=== PATIENT | male | born 1975 | race Two or more races ===

== ENCOUNTER → 2017-06-01 | Emergency (ER) | payer OTHER ==
[~2017-06-01] VITALS: Ht 175.3 cm; Wt 80.7 kg
[~2017-06-01] MED LIST: KETO10TA2 PO
== END | disposition home or self-care (01) ==
LOC: ER 21:21
DX: S61.451A Open bite of right hand, initial encounter (principal); W54.0XXA Bitten by dog, initial encounter; Y93.89 Activity, other specified; Y92.89 Other specified places as the place of occurrence of the external cause; Y99.8 Other external cause status

== ENCOUNTER → 2017-06-02 | Emergency (ER) | payer OTHER ==
[~2017-06-02] VITALS: Ht 175.3 cm; Wt 85.3 kg
== END | disposition left against medical advice (07) ==
LOC: ER 00:27
DX: Z53.20 Procedure and treatment not carried out because of patient's decision for unspecified reasons (principal)

== ENCOUNTER 2017-09-14 04:43 | Emergency (ER) | payer OTHER ==
[~2017-09-14] VITALS: Ht 170.2 cm; Wt 79.4 kg
== END 2017-09-14 10:40 | disposition home or self-care (01) ==
LOC: ER 04:43
DX: S60.413A Abrasion of left middle finger, initial encounter (principal); L08.9 Local infection of the skin and subcutaneous tissue, unspecified; W23.0XXA Caught, crushed, jammed, or pinched between moving objects, initial encounter; Y93.89 Activity, other specified; Y92.89 Other specified places as the place of occurrence of the external cause; Y99.8 Other external cause status

== ENCOUNTER → 2018-02-21 | Emergency (ER) | payer OTHER ==
[~2018-02-21] VITALS: Ht 175.3 cm; Wt 60.8 kg
[~2018-02-21] MED LIST changes: +IBUPROFEN800 MG PO
== END | disposition left against medical advice (07) ==
LOC: ER 23:55
DX: Z53.20 Procedure and treatment not carried out because of patient's decision for unspecified reasons (principal)

== ENCOUNTER 2018-02-25 07:04 | Emergency (ER) | payer OTHER ==
[~2018-02-25] VITALS: Ht 175.3 cm; Wt 83.5 kg
[~2018-02-25 07:04] MED LIST changes: -IBUPROFEN800 MG PO
[2018-02-25] MEDS ORDERED: IBUPROFEN800 MG PO (11:09)
== END 2018-02-25 12:28 | disposition home or self-care (01) ==
LOC: ER 07:04
DX: S60.022A Contusion of left index finger without damage to nail, initial encounter (principal); W23.0XXA Caught, crushed, jammed, or pinched between moving objects, initial encounter; Y93.89 Activity, other specified; Y92.69 Other specified industrial and construction area as the place of occurrence of the external cause; Y99.8 Other external cause status

== ENCOUNTER 2019-03-15 17:18 | Emergency (ER) | payer OTHER ==
[~2019-03-15] VITALS: Ht 175.3 cm; Wt 84.8 kg
[~2019-03-15 17:18] MED LIST changes: +IBUPROFEN800 MG PO
[2019-03-15] MEDS ORDERED: KETO10TA2 PO (20:09)
== END 2019-03-15 20:13 | disposition home or self-care (01) ==
LOC: ER 17:18
DX: S63.695A Other sprain of left ring finger, initial encounter (principal); S63.693A Other sprain of left middle finger, initial encounter; M12.542 Traumatic arthropathy, left hand; W01.198A Fall on same level from slipping, tripping and stumbling with subsequent striking against other object, initial encounter; Y93.89 Activity, other specified; Y92.89 Other specified places as the place of occurrence of the external cause; Y99.8 Other external cause status

== ENCOUNTER 2019-05-06 08:16 | Emergency (ER) | payer OTHER ==
[~2019-05-06] VITALS: Ht 175.3 cm; Wt 84.4 kg
== END 2019-05-06 09:02 | disposition home or self-care (01) ==
LOC: ER 08:16
DX: M70.22 Olecranon bursitis, left elbow (principal); Y93.89 Activity, other specified

== ENCOUNTER 2019-07-15 07:53 | Emergency (ER) | payer OTHER ==
[~2019-07-15] VITALS: Ht 175.3 cm; Wt 84.4 kg
[2019-07-31] MEDS ORDERED: ZESTRIL2.5 MG (12:51)
== END 2019-07-15 09:24 | disposition home or self-care (01) ==
LOC: ER 07:53
DX: J02.8 Acute pharyngitis due to other specified organisms (principal); B96.0 Mycoplasma pneumoniae [M. pneumoniae] as the cause of diseases classified elsewhere; R07.89 Other chest pain

== ENCOUNTER 2019-07-22 13:00 | Outpatient (CLI) | payer OTHER ==
[~2019-07-22] VITALS: Ht 175.3 cm; Wt 83.5 kg
[2019-07-31] MEDS ORDERED: ZESTRIL2.5 MG (12:51)
== END 2019-07-22 14:09 | disposition home or self-care (01) ==
LOC: OFIC 805 13:00
PROVIDERS: ATTEND Otolaryngology
DX: K11.5 Sialolithiasis (principal); H61.23 Impacted cerumen, bilateral

== ENCOUNTER 2019-07-29 21:55 | Emergency (ER) | payer OTHER ==
[~2019-07-29] VITALS: Ht 175.3 cm; Wt 83.5 kg
[2019-07-31] MEDS ORDERED: ZESTRIL2.5 MG (12:51)
== END 2019-07-29 23:24 | disposition home or self-care (01) ==
LOC: ER 21:55
DX: M54.5 Low back pain (principal); M54.6 Pain in thoracic spine

== ENCOUNTER → 2019-07-31 | Emergency (ER) | payer OTHER ==
[~2019-07-31] VITALS: Ht 175.3 cm; Wt 83.5 kg
[~2019-07-31] MED LIST changes: +ZESTRIL2.5 MG
== END | disposition home or self-care (01) ==
LOC: ER 12:21
DX: M54.89 Other dorsalgia (principal)

== ENCOUNTER 2019-08-11 22:58 | Emergency (ER) | payer OTHER ==
[~2019-08-11] VITALS: Ht 175.3 cm; Wt 76.2 kg
== END 2019-08-12 04:11 ==
LOC: ER 22:58
DX: Z48.89 Encounter for other specified surgical aftercare (principal)

== ENCOUNTER → 2019-08-27 | Emergency (ER) | payer OTHER ==
[~2019-08-27] MED LIST changes: +SKELAXIN800 MG PO
== END | disposition left against medical advice (07) ==
LOC: ER 12:14
DX: Z53.20 Procedure and treatment not carried out because of patient's decision for unspecified reasons (principal)

== ENCOUNTER 2019-08-31 16:38 | Emergency (ER) | payer OTHER ==
[~2019-08-31] VITALS: Ht 175.3 cm; Wt 77.6 kg
[~2019-08-31 16:38] MED LIST changes: -SKELAXIN800 MG PO
[2019-08-31] MEDS ORDERED: SKELAXIN800 MG PO (18:54)
[2019-08-31] MEDS ORDERED: KETO10TA2 PO (18:54)
== END 2019-08-31 18:58 | disposition home or self-care (01) ==
LOC: ER 16:38
DX: N39.0 Urinary tract infection, site not specified (principal); M62.830 Muscle spasm of back; R10.31 Right lower quadrant pain

== ENCOUNTER 2019-09-17 09:58 | Outpatient (CLI) | payer OTHER ==
[~2019-09-17 09:58] MED LIST changes: +SKELAXIN800 MG PO
== END 2019-09-17 10:14 | disposition home or self-care (01) ==
LOC: SONOGRAMA 09:58
PROVIDERS: ATTEND Surgery
DX: K80.80 Other cholelithiasis without obstruction (principal)

== ENCOUNTER 2019-09-25 10:19 | Emergency (ER) | payer OTHER ==
[~2019-09-25] VITALS: Ht 152.4 cm; Wt 79.8 kg
[2019-09-26] MEDS ORDERED: ZESTRIL5 MG (10:25)
[2019-09-26] MEDS ORDERED: ULTRAM50 MG PO (23:54)
[2019-09-26] MEDS ORDERED: KETO10TA2 PO (23:54)
[2019-09-26] MEDS ORDERED: PEPCID AC20 MG PO (23:54)
[2019-09-26] MEDS ORDERED: LEVSIN/SL0.125 MG SL (23:54)
[2019-10-18] MEDS ORDERED: ENALAPRIL (15:40)
== END 2019-09-25 10:41 | disposition left against medical advice (07) ==
LOC: ER 10:19
DX: R10.11 Right upper quadrant pain (principal)

== ENCOUNTER 2019-09-26 18:38 | Emergency (ER) | payer OTHER ==
[~2019-09-26] VITALS: Ht 175.3 cm; Wt 79.8 kg
[~2019-09-26 18:38] MED LIST changes: -ENALAPRIL; -LEVSIN/SL0.125 MG SL; -PEPCID AC20 MG PO; -ULTRAM50 MG PO
[2019-09-26] MEDS ORDERED: LEVSIN/SL0.125 MG SL (23:54)
[2019-09-26] MEDS ORDERED: PEPCID AC20 MG PO (23:54)
[2019-09-26] MEDS ORDERED: ULTRAM50 MG PO (23:54)
[2019-09-26] MEDS ORDERED: KETO10TA2 PO (23:54)
[2019-10-18] MEDS ORDERED: ENALAPRIL (15:40)
== END 2019-09-27 00:06 ==
LOC: ER 18:38
DX: R10.11 Right upper quadrant pain (principal); K29.60 Other gastritis without bleeding; K80.20 Calculus of gallbladder without cholecystitis without obstruction

== ENCOUNTER → 2019-09-26 | Emergency (ER) | payer OTHER ==
[~2019-09-26] VITALS: Ht 175.3 cm; Wt 79.8 kg
[~2019-09-26] MED LIST changes: +ENALAPRIL; +LEVSIN/SL0.125 MG SL; +PEPCID AC20 MG PO; +ULTRAM50 MG PO; +ZESTRIL5 MG
== END | disposition left against medical advice (07) ==
LOC: ER 10:15
DX: C61 Malignant neoplasm of prostate (principal); C79.51 Secondary malignant neoplasm of bone; G89.3 Neoplasm related pain (acute) (chronic); R10.2 Pelvic and perineal pain; M54.89 Other dorsalgia

== ENCOUNTER 2019-10-08 11:50 | Emergency (ER) | payer OTHER ==
[~2019-10-08] VITALS: Ht 297.2 cm; Wt 73.5 kg
[~2019-10-08 11:50] MED LIST changes: +LEVSIN/SL0.125 MG SL; +PEPCID AC20 MG PO; +ULTRAM50 MG PO
[2019-10-18] MEDS ORDERED: ENALAPRIL (15:40)
== END 2019-10-08 13:47 | disposition home or self-care (01) ==
LOC: ER 11:50
DX: R10.31 Right lower quadrant pain (principal)

== ENCOUNTER → 2019-10-18 | Emergency (ER) | payer OTHER ==
[~2019-10-18] VITALS: Ht 175.3 cm; Wt 74.4 kg
[~2019-10-18] MED LIST changes: +ENALAPRIL
== END | disposition left against medical advice (07) ==
LOC: ER 15:16
DX: K80.20 Calculus of gallbladder without cholecystitis without obstruction (principal); K80.80 Other cholelithiasis without obstruction; R10.11 Right upper quadrant pain

== ENCOUNTER 2019-12-21 10:55 | Emergency (ER) | payer OTHER ==
[~2019-12-21] VITALS: Ht 175.3 cm; Wt 76.7 kg
[2019-12-21] MEDS ORDERED: DICY20TA PO (13:30)
[2019-12-21] MEDS ORDERED: ORPHENADRINE C100 MG PO (13:30)
[2019-12-21] MEDS ORDERED: KETO10TA2 PO (13:30)
== END 2019-12-21 13:34 | disposition home or self-care (01) ==
LOC: ER 10:55
DX: M51.35 Other intervertebral disc degeneration, thoracolumbar region (principal); M62.830 Muscle spasm of back; Z03.818 Encounter for observation for suspected exposure to other biological agents ruled out

== ENCOUNTER → 2019-12-26 | Emergency (ER) | payer OTHER ==
[~2019-12-26] VITALS: Ht 175.3 cm; Wt 73.5 kg
[~2019-12-26] MED LIST changes: +DICY20TA PO; +ORPHENADRINE C100 MG PO
== END | disposition left against medical advice (07) ==
LOC: ER 08:19
DX: R10.31 Right lower quadrant pain (principal); Z03.818 Encounter for observation for suspected exposure to other biological agents ruled out

== ENCOUNTER → 2020-09-05 | Emergency (ER) | payer OTHER ==
[~2020-09-05] VITALS: Ht 170.2 cm; Wt 77.1 kg
== END | disposition home or self-care (01) ==
LOC: ER 23:05
DX: H61.23 Impacted cerumen, bilateral (principal)

== ENCOUNTER → 2021-08-28 | Emergency (ER) | payer OTHER | END | disposition left against medical advice (07) | LOC: ER 21:09 | DX: Z53.21 Procedure and treatment not carried out due to patient leaving prior to being seen by health care provider (principal) ==

== ENCOUNTER 2022-11-09 02:06 | Emergency (ER) | payer OTHER ==
[~2022-11-09] VITALS: Ht 177.8 cm; Wt 81.6 kg
== END 2022-11-09 04:18 | disposition home or self-care (01) ==
LOC: ER 02:06
DX: S20.219A Contusion of unspecified front wall of thorax, initial encounter (principal); W22.8XXA Striking against or struck by other objects, initial encounter; Y93.9 Activity, unspecified; Y92.9 Unspecified place or not applicable; Y99.9 Unspecified external cause status

== ENCOUNTER → 2023-10-18 | Emergency (ER) | payer OTHER ==
[~2023-10-18] VITALS: Ht 177.8 cm; Wt 75.3 kg
[~2023-10-18] MED LIST changes: +KETOROLAC TROMETHAMINE 30 MG VIAL IM STA; +KETOROLAC TROMETHAMINE 30 MG VIAL ONE
[2023-10-18 15:23] LABS: HEMATOCRIT 40.5 % (39.0-48.0); HEMOGLOBIN 13.8 g/dL (13-16.00); MEAN CELL VOLUME 92.7 fL (80.0-100.00); MEAN CORPUSCULAR HEMOGLOBIN 31.7 pg (27.00-32.0); MEAN CORPUSCULAR HGB CONC 34.1 g/dl (32.0-36.0); PLATELET COUNT 202 K/uL (150-450); RED BLOOD COUNT 4.36 M/uL (4.00-6.00); RED CELL DISTRIBUTION WIDTH 13.6 % (11.5-14.5)
[2023-10-18 15:43] LABS: INR 1.01; PARTIAL THROMBOPLASTIN TIME 29.4 SECONDS (22.0-34.0)
[2023-10-18 15:47] LABS: ALBUMIN 3.9 gm/dL (3.4-5.0); BILIRUBIN TOTAL 0.71 mg/dL (0.3-1.2); CALCIUM 8.9 mg/dL (8.5-10.1); CREATININE SERUM 0.5 mg/dL (0.70-1.30); GLOBULINA 4.9 G/DL (2.4-3.5); POTASSIUM 3.81 mEq/L (3.5-5.1); TOTAL PROTEIN 8.8 gm/dL (6.4-8.2)
== END | disposition left against medical advice (07) ==
LOC: ER 13:40
PROVIDERS: General Practice
DX: M79.662 Pain in left lower leg (principal)

== ENCOUNTER → 2024-10-27 | Emergency (ER) | payer OTHER ==
[~2024-10-27] VITALS: Ht 175.3 cm; Wt 80.7 kg
[~2024-10-27] MED LIST changes: -KETOROLAC TROMETHAMINE 30 MG VIAL IM STA; -KETOROLAC TROMETHAMINE 30 MG VIAL ONE
[2024-10-27 09:01] VITALS: BP 138/85; O2SAT 96
== END | disposition left against medical advice (07) ==
LOC: ER 08:52
DX: Z53.21 Procedure and treatment not carried out due to patient leaving prior to being seen by health care provider (principal)

== ENCOUNTER 2024-10-28 06:00 | Emergency (ER) | payer OTHER ==
[~2024-10-28] VITALS: Ht 167.6 cm; Wt 77.1 kg
[2024-10-28 10:08] LABS: BASO % 0.8 % (0.1-1.2); EOS # 0.03 (0.04-0.54); EOS % 0.5 % (0.7-7.0); LYMPH # 1.54 (1.18-3.74); LYMPH % 26.1 % (19.3-53.1); MEAN PLATELET VOLUME 8.80 fl (9.4-12.4); MONO # 0.76 (0.24-0.82); NEUT # 3.50 (1.56-6.13); NEUT % 59.5 % (34.0-71.1); RED CELL DISTRIBUTION WIDTH 12.6 % (11.6-14.4)
[2024-10-28 10:09] LABS: MONO % 12.9 % (4.7-12.5)
[2024-10-28 11:02] LABS: BUN CREA RATIO 20.0 (7.0-25.0); CREATININE SERUM 0.44 mg/dL (0.70-1.30); GFR 203.17; GLUCOSE FASTING 154.0 mg/dL (65-100); OSMOLALITY SERUM 277.0 MOSM/KG (275-295)
== END 2024-10-28 15:08 | disposition home or self-care (01) ==
LOC: ER 06:02
PROVIDERS: General Practice
DX: R60.0 Localized edema (principal); M79.89 Other specified soft tissue disorders; I10 Essential (primary) hypertension